=== PATIENT | male | born 1960 | race Two or more races ===

== ENCOUNTER 2021-04-09 02:00 | Emergency (ER) | payer MEDICAID ==
[~2021-04-09] VITALS: Ht 177.8 cm; Wt 109.0 kg
[~2021-04-09 02:00] MED LIST: ASPI-518; LISI20TA31; METF-416; SIMV-46
[2021-04-09] MEDS ORDERED: HYDROCODONE/ACETAMINOPHEN 5/325MG TABLET PO ONE (02:30)
[2021-04-09 04:10] VITALS: BP 110/76
[2021-04-09] MEDS ORDERED: TETANUS, DIPHTHERIA, PERTUSSIS VAC/PF 0.5ML (>7YR OLD) IM ONE (05:45)
[2021-04-09] MEDS ORDERED: BACITRACIN ZINC OINT UDPKT TOP ONE (05:45)
[2021-04-09] MEDS ORDERED: ACET-2708 MT (06:01)
[2021-04-09] MEDS ORDERED: NAPR-1176 MT (06:01)
== END 2021-04-09 07:10 | disposition home or self-care (01) ==
LOC: ER 02:00
DX: S20.219A Contusion of unspecified front wall of thorax, initial encounter (principal); S70.12XA Contusion of left thigh, initial encounter; S70.11XA Contusion of right thigh, initial encounter; E11.9 Type 2 diabetes mellitus without complications; I10 Essential (primary) hypertension; E78.00 Pure hypercholesterolemia, unspecified; Z79.84 Long term (current) use of oral hypoglycemic drugs; Z79.82 Long term (current) use of aspirin; V47.0XXA Car driver injured in collision with fixed or stationary object in nontraffic accident, initial encounter; Y93.89 Activity, other specified; Y92.520 Airport as the place of occurrence of the external cause; Y99.8 Other external cause status
CPT/HCPCS: 71045; 73552; 73562; 73590; 90471; 93005; 99284